=== PATIENT | male | born 1995 | race Caucasian/White ===

== ENCOUNTER 2017-07-09 17:23 | Emergency (ER) | payer BC ==
--- NOTE | 2017-07-09 17:49 | PDOC ---
Sore Throat/Dental Pain HPI - General Chief Complaint: Nasal/Mouth Problem /Injury Stated Complaint: DENTAL PAIN Date Seen by Provider: 07/09/17 Time Seen by Provider: 17:25 Source: POSITIVE: Patient Exam Limitations: POSITIVE: No limitations Nurse's Notes Reviewed & Considered: Yes - History of Present Illness Initial Comments: The patient is a 21-year-old male who presents to the emergency department with left-sided facial pain and swelling. He has poor dentition and has had previous dental abscesses. He is in the process of saving his money to have dental work done. In addition his job will be providing dental coverage for him at some point as well. He states that for the past several days he has had increased pain and swelling to the left upper teeth with starting of swelling over the last 24 hours. He has had some subjective fevers and chills at home. He denies difficulty swallowing. He has been taking ibuprofen without relief. - Patient Home Medications Home Medications: Home Medications Amoxicillin 500 mg PO Q8H #42 cap 07/09/17 HYDROcodone/APAP 5/325 Tab [Soldier 5/325 Tab] 1 each PO Q6H PRN #15 tablet NK [No Home Medications Reported] 07/09/17 - Patient Allergies Allergies/Adverse Reactions: Allergies Allergy/AdvReac Type Severity Reaction Status Date / Time No Known Allergies Allergy Verified 07/09/17 17:41 Past Medical History Past Medical History Reviewed: Other (please comment) (He denies any other significant medical issues.) ROS - Limitations ROS Limitations: No Limitations Constitution: DENIES: Chills, Fever Sore Throat/Dental Pain Exam - General Appearance General Appearance: REPORTS: Alert, Cooperative, No Acute Distress - HEENT Head / Face: POSITIVE: Other (He does have some mild left-sided facial swelling) Eyes: POSITIVE: Inspection Normal Ears: POSITIVE: Ears Normal Inspection Nose: POSITIVE: Inspection Normal Oropharynx: POSITIVE: Other (Examination the oral cavity reveals poor dentition with multiple dental caries and broken teeth, left upper teeth are broken off at the gumline and he does have some surrounding gum erythema and swelling, no visible drainage) Neck: POSITIVE: Supple. NEGATIVE: Lymphadenopathy - Respiratory Respiratory: REPORTS: No Respiratory Distress, Breath Sounds Normal - Cardiovascular Cardiovascular: REPORTS: Regular Rate and Rhythm, Heart Sounds Normal - Abdomen Abdomen: Soft: (All Quadrants), Denies Tenderness: (All Quadrants), No Distention: (All Quadrants) - Extremities Extremity: Normal ROM: (All Extremities), Normal Inspection: (All Extremities) - Skin Skin: REPORTS: Intact, No Rash Sore Throat/Dental Progress - Patient's Progress MDM / ED Course: I did recommend that the patient receive at least one dose of IV antibiotics however the patient refused. He was started on amoxicillin 500 mg 3 times a day for 14 days. He is advised to continue ibuprofen 600 mg every 6 hours as needed for pain. In addition he was given a prescription for #15 Soldier 5/325 which he can take one every 4-6 hours as needed for pain. He is advised return to the emergency room if he develops increased swelling, difficulty swallowing, dehydration, any worsening or change in symptoms. He is advised follow-up with the dentist as soon as possible. - Consult Counseled: POSITIVE: Patient, RE: DX, RE: Need for F/U Patient Care Time - Estimated PCT Patient Care Time (In Minutes): 10 Vital Signs - Recent Vital Signs Vital Signs: Vital Signs (Last 8 hours) Temp Pulse Resp BP Pulse Ox 07/09/17 18:02 96 F L 88 18 131/89 96 07/09/17 17:40 96.5 F L 88 18 131/84 96 - VS Reviewed Vital Signs Reviewed: Yes Discharge Clinical Impression: Dental abscess Discharge Disposition: Discharged to Home Condition: Stable Prescriptions / Orders: Amoxicillin 500 mg PO Q8H #42 cap HYDROcodone/APAP 5/325 Tab [Soldier 5/325 Tab] 1 each PO Q6H PRN #15 tablet PRN Reason: Pain Patient Instructions Given at Discharge: Dental Abscess (ED) Additional Instructions: Amoxicillin 500 mg 3 times a day for 14 days. Ibuprofen 600 mg every 6 hours as needed for pain. Soldier 5/325 one every 4-6 hours as needed for severe pain. Return to the emergency room if increased swelling, difficulty swallowing, dehydration, any worsening or change in symptoms. Recommend dental follow-up as soon as possible. Follow Up With: NONE,NONE [Primary Care Provider] -
[2017-07-09 18:03] VITALS: RESP 18
[2017-07-09 18:08] VITALS: TEMP 96
== END 2017-07-09 17:49 | disposition home or self-care (01) ==
LOC: ER 17:23
DX: K04.7 Periapical abscess without sinus (principal); K08.89 Other specified disorders of teeth and supporting structures
CPT/HCPCS: 99282